=== PATIENT | female | born 1940 | race Caucasian/White ===

== ENCOUNTER 2023-09-15 16:29 | Outpatient (CLI) | payer MEDICARE, MEDICAID ==
[~2023-09-15 16:29] MED LIST: ASPI-1264 PO; CALC-674 PO; CHOL100046 PO; DRON400T6 PO; HYDR-4383 PO; MULT-620 PO; VERA120T86 PO
== END 2023-09-15 23:59 | disposition home or self-care (01) ==
LOC: RAD 16:29
PROVIDERS: ATTEND Family Medicine
DX: J22 Unspecified acute lower respiratory infection (principal)
CPT/HCPCS: 71046